=== PATIENT | male | born 1995 | race Caucasian/White ===

== ENCOUNTER 2017-06-29 22:09 | Emergency (ER) | payer OTHER ==
[2017-06-29 22:17] VITALS: BP 138/86; PULSE 85; RESP 21; TEMP 98.6; O2SAT 98
[2017-06-29] MEDS ORDERED: VITA250C3 CHEW (22:23)
[2017-06-29] MEDS ORDERED: SODIUM CHLOR 0.9% 1000 ML INJ 1,000 ML IV ONE (22:30)
--- NOTE | 2017-06-29 22:33 | PD ---
HPI Chief Complaint: Alcohol/Drug Intoxication Time Seen by Provider: 22:19 Travel History International Travel<30 days: No Contact w/Intl Traveler<30days: No Traveled to known affect area: No History of Present Illness HPI 22yo M with no PMH was brought in under police custody for polysubstance abuse. Pt is an [employer] student and was in student center acting agitated. When police got there, he was taking his clothes off and threatened to fight the police. The police tried to tase him but missed and he ran away. As per police, he was able to tackle him down. Denies any head trauma, LOC, chest pain , sob, n/v, abdominal pain, focal weakness or numbness. Pt is AAOx3 and said he just doesnt feel well. He admits to ecstasy, cocaine, marajuana and alcohol use. There are some small abrasions on right upper back, right elbow and right hand. PFSH Past Medical History Medical History: Denies Significant Hx Diminished Hearing: No Tetanus Vaccination: Unknown Influenza Vaccination: Yes Past Surgical History Surgical History: No Previous Surgery Social History Alcohol Use: Yes (SOCIALLY, FEW TIMES A WEEK) Tobacco Use: Yes (<1/2 [employer], CHEWS TOBACCO) Substance Use: Yes (COCAINE, MARIJUANA, ECSTASY) Allergies-Medications (Allergen,Severity, Reaction): Coded Allergies: No Known Allergies (Unverified , 06/29/17) Reported Meds & Prescriptions Reported Meds & Active Scripts Active Reported Vitamin C (Ascorbic Acid) 250 Mg Chew 250 Mg CHEW DAILY Review of Systems Except as stated in HPI: all other systems reviewed are Neg Physical Exam Narrative GENERAL: 22yo M in mild distress. SKIN: Focused skin assessment warm/dry. HEAD: Atraumatic. Normocephalic. EYES: Pupils equal and round at 4mm bilaterally. EOMI. ENT: No nasal bleeding or discharge. Mucous membranes pink and moist. NECK: No midline cervical spine ttp. CARDIOVASCULAR: Regular rate and rhythm. No murmur appreciated. RESPIRATORY: No accessory muscle use. Clear to auscultation. Breath sounds equal bilaterally. GASTROINTESTINAL: Abdomen soft, non-tender, nondistended. No rebound tenderness or guarding. BACK: No midline thoracic or lumbar spine ttp. +Small abrasion in right scapula. MUSCULOSKELETAL: +Abrasion in right elbow. Good range of motion in right elbow. Sensation intact. Distal pulses intact. Right hand: +Abrasion in fourth digit. FROM in all digits. Sensation intact. Distal pulses intact. NEUROLOGICAL: Awake and alert. No obvious cranial nerve deficits. Motor grossly within normal limits. Normal speech. PSYCHIATRIC: Appropriate mood and affect; insight and judgment normal. Data Data Last Documented VS Vital Signs Date Time Temp Pulse Resp B/P (MAP) Pulse Ox O2 Delivery O2 Flow Rate FiO2 06/29/17 22:17 98.6 85 21 138/86 (103) 98 Orders Orders Complete Blood Count With Diff (06/29/17 22:26) Alcohol (Ethanol) (06/29/17 22:26) Tylenol (Acetaminophen) (06/29/17 22:26) Salicylates (Aspirin) (06/29/17 22:26) Comprehensive Metabolic Panel (06/29/17 22:26) Electrocardiogram (06/29/17 ) Sodium Chlor 0.9% 1000 Ml Inj (Ns 1000 M (06/29/17 22:30) Chest, Single Ap (06/29/17 ) Elbow, Limited (Ap&Lat) (06/29/17 ) Tetanus/Diphtheria Tox Adult (Tetanus/Di (06/29/17 22:45) Creatine Kinase (Cpk) (06/29/17 22:26) CKMB (06/29/17 22:30) CKMB% (06/29/17 22:30) Ondansetron Inj (Zofran Inj) (06/30/17 00:30) Labs Laboratory Tests Test 06/29/17 22:30 White Blood Count 7.6 TH/MM3 Red Blood Count 4.71 MIL/MM3 Hemoglobin 14.6 GM/DL Hematocrit 42.1 % Mean Corpuscular Volume 89.5 FL Mean Corpuscular Hemoglobin 31.0 PG Mean Corpuscular Hemoglobin Concent 34.6 % Red Cell Distribution Width 12.8 % Platelet Count 226 TH/MM3 Mean Platelet Volume 7.9 FL Neutrophils (%) (Auto) 78.1 % Lymphocytes (%) (Auto) 12.5 % Monocytes (%) (Auto) 8.4 % Eosinophils (%) (Auto) 0.6 % Basophils (%) (Auto) 0.4 % Neutrophils # (Auto) 6.0 TH/MM3 Lymphocytes # (Auto) 1.0 TH/MM3 Monocytes # (Auto) 0.6 TH/MM3 Eosinophils # (Auto) 0.0 TH/MM3 Basophils # (Auto) 0.0 TH/MM3 CBC Comment DIFF FINAL Differential Comment Blood Urea Nitrogen 13 MG/DL Creatinine 1.17 MG/DL Random Glucose 92 MG/DL Total Protein 7.3 GM/DL Albumin 4.1 GM/DL Calcium Level 8.7 MG/DL Alkaline Phosphatase 71 U/L Aspartate Amino Transf (AST/SGOT) 21 U/L Alanine Aminotransferase (ALT/SGPT) 30 U/L Total Bilirubin 0.5 MG/DL Sodium Level 139 MEQ/L Potassium Level 3.8 MEQ/L Chloride Level 105 MEQ/L Carbon Dioxide Level 25.5 MEQ/L Anion Gap 9 MEQ/L Estimat Glomerular Filtration Rate 78 ML/MIN Total Creatine Kinase 363 U/L Creatine Kinase MB 2.6 NG/ML Creatine Kinase MB % 0.7 % Salicylates Level LESS THAN 1.7 MG/DL Acetaminophen Level LESS THAN 2.0 MCG/ML Ethyl Alcohol Level LESS THAN 3 MG/DL MDM Medical Decision Making Medical Screen Exam Complete: Yes Emergency Medical Condition: Yes Interpretation(s) EKG: Sinus arrhythmia at 71bpm. Normal axis. No ST segment elevation or depression. Narrow QRS. QTc 425ms. Differential Diagnosis Polysubstance abuse vs. intoxication vs. drug induced psychosis Narrative Course 22yo M with polysubstance abuse under arrest for attempting to fight officer. No taser found on patient. Labs reviewed, no leukocytosis. CMP unremarkable except mildly elevated CPK at 363. Alcohol negative. Acetaminophen and salicylate negative. CXR negative. Xray right elbow negative. Pt given NS IVF and zofran. Urine drug screen pending but pt admits to drug use. Pt has been observed for over 2 hours and feeling better. Pt is AAOx3 and denies any complaints. Instructed pt not to do drugs. Pt to be discharge to police custody. Diagnosis Primary Impression: Drug use Patient Instructions: General Instructions Departure Forms: Tests/Procedures Additional Instructions: Please follow up with your primary care physician in 3-7 days. Return to the ED if symptoms worsen. Med/Other Pt SpecificInfo: No Change to Meds Disposition: 01 DISCHARGE HOME Condition: Stable ColladoDesiree DO Jun 29, 2017 22:33
[2017-06-29] MEDS ORDERED: TETANUS/DIPHTHERIA TOXOID ADULT 0.5 ML VIAL IM ONE (22:45)
[2017-06-29 22:48] LABS: BASOPHIL % 0.4 % (0.0-2.0); EOSINOPHIL % 0.6 % (0.0-4.0); HEMATOCRIT 42.1 % (39.0-51.0); HEMO FLAGS DIFF FINAL; LYMPH % 12.5 % (9.0-44.0); MEAN CELL VOLUME 89.5 FL (80.0-100.0); MEAN CORPUSCULAR HGB CONC 34.6 % (32.0-36.0); MONO % 8.4 % (0.0-8.0); NEUT % 78.1 % (16.0-70.0); PLATELET COUNT 226 TH/MM3 (150-450); RED BLOOD COUNT 4.71 MIL/MM3 (4.50-5.90); RED CELL DISTRIBUTION WIDTH 12.8 % (11.6-17.2); WHITE BLOOD COUNT 7.6 TH/MM3 (4.0-11.0)
--- NOTE | 2017-06-29 22:52 | RADRPT ---
EXAM DATE/TIME: 06/29/2017 22:46 [facility] COMPARISON: No previous studies available for comparison. INDICATIONS : Abrasion posterior right elbow, fell MEDICAL HISTORY : None. SURGICAL HISTORY : None. ENCOUNTER: Initial ACUITY: 1 day PAIN SCORE: Non-responsive. LOCATION: Right Elbow FINDINGS: Two view examination of the right elbow demonstrates no soft tissue swelling, joint effusion, fractur e or dislocation. Bony mineralization is normal. CONCLUSION: No acute disease. Kris Dailey MD on June 29, 2017 at 22:51 Board Certified Radiologist. This report was verified electronically.
--- NOTE | 2017-06-29 22:52 | RADRPT ---
EXAM DATE/TIME: 06/29/2017 22:44 [facility] COMPARISON: No previous studies available for comparison. INDICATIONS : Evaluate for trauma, abrasion right upper back. Fell MEDICAL HISTORY : None. SURGICAL HISTORY : None. ENCOUNTER: Initial ACUITY: 1 day PAIN SCORE: Non-responsive. LOCATION: chest FINDINGS: A single view of the chest demonstrates the lungs to be symmetrically aerated without evidence of mas s, infiltrate or effusion. The cardiomediastinal contours are unremarkable. Osseous structures are intact. CONCLUSION: No acute disease. Kris Dailey MD on June 29, 2017 at 22:50 Board Certified Radiologist. This report was verified electronically.
[2017-06-29 23:09] LABS: ALT (GPT) 30 U/L (12-78); ANION GAP 9 MEQ/L (5-15); AST (GOT) 21 U/L (15-37); BICARBONATE 25.5 MEQ/L (21.0-32.0); BLOOD UREA NITROGEN 13 MG/DL (7-18); CHLORIDE 105 MEQ/L (98-107); GLOMERULAR FILTRATION RATE 78 ML/MIN (>89); POTASSIUM 3.8 MEQ/L (3.5-5.1); SODIUM (NA) 139 MEQ/L (136-145)
[2017-06-29 23:11] LABS: ALKALINE PHOSPHATASE 71 U/L (45-117); CREATINE KINASE 363 U/L (39-308); TOTAL BILIRUBIN ADULT 0.5 MG/DL (0.2-1.0)
[2017-06-29 23:12] LABS: ACETAMINOPHEN LESS THAN 2.0 MCG/ML (10.0-30.0); ALCOHOL LESS THAN 3 MG/DL (0-5)
[2017-06-29 23:28] LABS: CKMB 2.6 NG/ML (0.5-3.6)
[2017-06-30] MEDS ORDERED: ONDANSETRON HCL 4 MG/2 ML VIAL IV PUSH ONE (00:30)
[2017-06-30 00:45] VITALS: BP 128/76
--- NOTE | 2017-06-30 07:58 | EKG ---
Date Performed: 06/29/2017 Time Performed: 23:04:17 PTAGE: 22 years EKG: Sinus rhythm WITH MARKED SINUS ARRHYTHMIA BORDERLINE ECG NO PREVIOUS TRACING DOCTOR: Marcel Joe Interpretating Date/Time 06/30/2017 07:56:54
== END 2017-06-30 01:05 | disposition home or self-care (01) ==
LOC: NEPD 22:09
DX: F19.90 Other psychoactive substance use, unspecified, uncomplicated (principal); F17.220 Nicotine dependence, chewing tobacco, uncomplicated; R94.31 Abnormal electrocardiogram [ECG] [EKG]; Y35.813A Legal intervention involving manhandling, suspect injured, initial encounter; Z72.89 Other problems related to lifestyle
CPT/HCPCS: 71010; 73070; 80053; 80307; 82550; 82552; 85025; 90471; 90714; 93005; 96360; 99285; J7030